=== PATIENT | female | born 1995 | race African-American/Black ===

== ENCOUNTER 2019-04-03 16:33 | Emergency (ER) | payer SELFPAY ==
[~2019-04-03] VITALS: Ht 165.1 cm; Wt 86.2 kg
[2019-04-03 16:57] VITALS: BP 146/86
== END 2019-04-03 17:29 | disposition home or self-care (01) ==
LOC: ER 16:38
DX: M75.92 Shoulder lesion, unspecified, left shoulder (principal); N76.0 Acute vaginitis; B96.89 Other specified bacterial agents as the cause of diseases classified elsewhere

== ENCOUNTER 2019-04-23 10:19 | Emergency (ER) | payer SELFPAY ==
[~2019-04-23] VITALS: Ht 165.1 cm; Wt 86.2 kg
[2019-04-23 10:35] VITALS: BP 112/66
== END 2019-04-23 14:30 | disposition left against medical advice (07) ==
LOC: ER 10:22
DX: Z32.00 Encounter for pregnancy test, result unknown (principal); Z53.21 Procedure and treatment not carried out due to patient leaving prior to being seen by health care provider
CPT/HCPCS: 36415; 84702

== ENCOUNTER 2019-04-24 08:54 | Emergency (ER) | payer SELFPAY ==
[~2019-04-24] VITALS: Ht 165.1 cm; Wt 86.2 kg
[2019-04-24 09:08] VITALS: BP 142/83
== END 2019-04-24 09:19 | disposition home or self-care (01) ==
LOC: ER 08:58
DX: Z32.01 Encounter for pregnancy test, result positive (principal)